=== PATIENT | male | born 1945 | race Caucasian/White ===

== ENCOUNTER 2018-04-05 14:52 | Emergency (ER) | payer OTHER, MEDICARE ==
[~2018-04-05] VITALS: Ht 177.8 cm; Wt 86.4 kg
[2018-04-05 14:56] VITALS: Ht 177.8 cm; Wt 86.4 kg
[2018-04-05] MEDS ORDERED: BP MED (14:57)
[2018-04-05] MEDS ORDERED: "\\\"STATIN\\\"" (14:57)
[2018-04-05] MEDS ORDERED: NORVASC10 MG PO (15:21)
[2018-04-05 16:17] VITALS: BP 145/70
== END 2018-04-05 16:18 | disposition home or self-care (01) ==
LOC: D.ER 14:52
DX: T78.3XXA Angioneurotic edema, initial encounter (principal)

== ENCOUNTER 2020-03-20 19:30 | Inpatient (IN) | payer OTHER, MEDICARE ==
[~2020-03-20] VITALS: Ht 177.8 cm; Wt 78.0 kg
[~2020-03-20 19:30] MED LIST: "\\\"STATIN\\\""; BP MED; NORVASC10 MG PO
[2020-03-20 20:25] LABS: BASOPHILS 0.3 % (0-2); EOSINOPHILS 0 % (0-7); HEMATOCRIT 40.9 % (42.0-54.0); HEMOGLOBIN 14.1 g/dL (13.5-17.5); IMMATURE GRANULOCYTES 0.3 % (0-5); LYMPHOCYTES 18.4 % (15-50); MCH 31.2 pg (26.0-34.0); MCHC 34.5 g/dL (31.0-37.0); MCV 90.5 fL (80.0-100.0); MEAN PLATELET VOLUME 9.3 fL (7.4-10.4); MONOCYTES 10.9 % (2-11); NEUTROPHILS 70.1 % (40-80); PLATELET COUNT 164 10x3/uL (130-400); RBC 4.52 10x6/uL (4.20-6.10); RDW 13.4 % (11.5-14.5)
[2020-03-20 20:31] LABS: BILIRUBIN NEGATIVE (NEGATIVE); GLUCOSE NEGATIVE (NEGATIVE); KETONE NEGATIVE (NEGATIVE); NITRITE NEGATIVE (NEGATIVE); UROBILINOGEN NORMAL (NORMAL)
[2020-03-20 20:51] LABS: CALC OSMOLALITY 263 mosm/kg (275-300); CALCIUM 8.4 mg/dL (8.5-10.1); CARBON DIOXIDE 25.6 mmol/L (21.0-32.0); CHLORIDE - SERUM 99 mmol/L (98-107); CREATININE - SERUM 1.1 mg/dL (0.6-1.3); GLUCOSE 102 mg/dL (74-106); POTASSIUM - SERUM 3.7 mmol/L (3.5-5.1); SODIUM 131 mmol/L (136-145); UREA NITROGEN 15 mg/dL (7-18); eGFR NON AFRICAN AMERICAN 70 mL/min (90-120)
[2020-03-20 21:01] LABS: ALBUMIN 3.2 g/dL (3.4-5.0); ALKALINE PHOSPHATASE 86 U/L (30-120); ALT (SGPT) 75 U/L (10-68); BILIRUBIN - TOTAL 0.52 mg/dL (0.2-1.3); C-REACTIVE PROTEIN 6.6 mg/dL (0.0-0.9); LIPASE 99 U/L (73-393); PRO BNP 496 pg/mL (0-125); PROTEIN - SERUM 7.3 g/dL (6.4-8.2); THYROID STIMULATING HORMONE 0.59 uIU/mL (0.36-3.74); TROPONIN-I < 0.017 ng/mL (0.000-0.060)
[2020-03-20 21:41] VITALS: BP 140/84
[2020-03-20 22:28] VITALS: BP 131/55
--- NOTE | 2020-03-21 00:02 | NUR ---
PT PROVIDED WITH URINAL. NO ACUTE DISTRESS NOTED, BED IN LOWEST POSITION, CALL LIGHT WITHIN REACH, WILL CONTINUE TO MONITOR.
[2020-03-21 03:00] VITALS: BP 143/73
[2020-03-21] MEDS ORDERED: LISINOPRIL10 MG PO (04:32)
[2020-03-21] MEDS ORDERED: ZETIA10 MG PO (04:32)
[2020-03-21 07:23] LABS: INR 0.98 (0.85-1.17)
[2020-03-21 07:32] VITALS: BP 168/90
[2020-03-21 07:40] LABS: CKMB 1.3 U/L (0.0-3.6); CREATINE KINASE 183 UL (21-232); MAGNESIUM - SERUM 1.8 mg/dL (1.8-2.4); TROPONIN-I < 0.017 ng/mL (0.000-0.060)
[2020-03-21 11:18] LABS: CKMB 0.7 U/L (0.0-3.6); CREATINE KINASE 146 UL (21-232)
[2020-03-21 11:20] LABS: TROPONIN-I < 0.017 ng/mL (0.000-0.060)
[2020-03-21 12:18] VITALS: BP 129/64
[2020-03-21 13:42] VITALS: Ht 177.8 cm; Wt 78.0 kg
[2020-03-21 16:23] VITALS: BP 173/96
[2020-03-21 17:30] LABS: CREATINE KINASE 168 UL (21-232); TROPONIN-I < 0.017 ng/mL (0.000-0.060)
--- NOTE | 2020-03-21 19:00 | NUR ---
REPORT RECEIVED, WILL CONTINUE POC. PATIENT IS AAOX4, UP AD [place]. NO S/S OF DISTRESS OBSERVED, RR EVEN AND UNLABORED ON ROOM AIR. PATIENT DENIES NEEDS AT THIS TIME. WILL BE MOVING TO ROOM 2101 DUE TO NEGATIVE COVID RESULT. CL IN REACH, BED LOCKED AND LOWERED. WILL CTM.
[2020-03-21 20:00] VITALS: BP 130/67
[2020-03-22 04:00] VITALS: BP 138/76
--- NOTE | 2020-03-22 04:03 | NUR ---
I have reviewed this patient and I concur with the Shift Assessment completed by the Licensed Practical Nurse today this shift.
--- NOTE | 2020-03-22 04:31 | NUR ---
PATIENT C/O HEADACHE. PRN TYLENOL ADMINISTERED PER ORDER.
[2020-03-22 07:02] LABS: BASOPHILS 0 % (0-2); EOSINOPHILS 0.3 % (0-7); HEMATOCRIT 36.8 % (42.0-54.0); HEMOGLOBIN 12.6 g/dL (13.5-17.5); IMMATURE GRANULOCYTES 0.3 % (0-5); LYMPHOCYTES 25.2 % (15-50); MCH 30.7 pg (26.0-34.0); MCHC 34.2 g/dL (31.0-37.0); MCV 89.8 fL (80.0-100.0); MEAN PLATELET VOLUME 8.8 fL (7.4-10.4); NEUTROPHILS 61.2 % (40-80); PLATELET COUNT 156 10x3/uL (130-400); RDW 13.3 % (11.5-14.5); WBC 3.9 10x3/uL (4.8-10.8)
[2020-03-22 07:21] LABS: ALBUMIN 2.8 g/dL (3.4-5.0); ALKALINE PHOSPHATASE 67 U/L (30-120); ALT (SGPT) 59 U/L (10-68); BILIRUBIN - TOTAL 0.45 mg/dL (0.2-1.3); CALC OSMOLALITY 270 mosm/kg (275-300); CALCIUM 8.4 mg/dL (8.5-10.1); CARBON DIOXIDE 25.8 mmol/L (21.0-32.0); CHLORIDE - SERUM 103 mmol/L (98-107); GLUCOSE 109 mg/dL (74-106); MAGNESIUM - SERUM 2.1 mg/dL (1.8-2.4); POTASSIUM - SERUM 3.7 mmol/L (3.5-5.1); PROTEIN - SERUM 6.4 g/dL (6.4-8.2); SODIUM 135 mmol/L (136-145); UREA NITROGEN 13 mg/dL (7-18); eGFR NON AFRICAN AMERICAN 78 mL/min (90-120)
[2020-03-22 08:00] VITALS: BP 138/59
[2020-03-22 11:00] VITALS: BP 190/98
--- NOTE | 2020-03-22 11:30 | NUR ---
CALLED TO ROOM AND PATIENT WAS SHAKING UNCONTROLLABLY, LEGS CRAMPING. HAVING CHILLS, HEART RATE SINUS TACH 109, BLOOD PRESSURE 190/102 MANUAL. TEMP 98.3. [facility] MARICARMEN CALLED AND SPOKE WITH FRANDY SORIA AND ASK HER TO COME LAY EYES ON PATIENT. SHE SAID SHE JUST LEFT THE FLOOR BUT WOULD COME BACK AT 11:35. ESTELLA HERE AT 11:55 AND COMPLETE EXAM DONE. BLOOD PRESSURE NOW 190/98. SHAKING AND CRAMPING HAS SLOWED DRASTICALLY AND IS IN ROOM AT THIS TIME.
[2020-03-22 15:00] VITALS: BP 146/82
[2020-03-22 18:55] LABS: UDS - AMPHET NEGATIVE QUAL (NEGATIVE); UDS - BARB NEGATIVE QUAL (NEGATIVE); UDS - BENZO POSITIVE QUAL (NEGATIVE); UDS - COCAINE NEGATIVE QUAL (NEGATIVE); UDS - OPIATE NEGATIVE QUAL (NEGATIVE); UDS - PCP NEGATIVE QUAL (NEGATIVE); UDS - THC NEGATIVE QUAL (NEGATIVE)
--- NOTE | 2020-03-22 18:55 | MORECARE ---
CASE MANAGEMENT DISCHARGE SUMMARY PATIENT: SHANELLE BUSTAMANTE SCHULTZ UNIT: [id number] ADM DATE: 03/21/20 AGE: 74 : 47 SEX: M ROOM/BED: D.2103 AUTHOR: IVETTE AL PHYSICIAN: REFERRING PHYSICIAN: EMILIANA PHAM MD DATE OF SERVICE: 03/22/20 Discharge Plan Patient Name: SHANELLE BUSTAMANTE [facility] [facility] 1945 Planned Disposition: Anticipated Discharge Date: Discharge Date: Expected LOS: Initial Reviewer: [email or web address] Initial Review Date: 03/21/2020 Generated: 03/22/20 7:54 pm External Providers External Provider: [employer] Next Contact Date: Service Request Date: Service Type: Resolution: Reviewer: Comments: Coverage Notice Reviewer: [email or web address] Juan José Curran Notice Issued Date-Time: 03/21/2020 16:30 Notice Type: Medicare Outpatient Observation Notice Notice Delivered To: Patient Relationship to Patient: Field Court Researcher Name: Delivery Method: HAND - Hand Delivered Juju Days: Prior Verbal Notification: Recipient Understood Notice: Yes Recipient Signature: Yes Med Rec Note Co-signed by Attending: Coverage Notice Comment: IBRAHIM SERVED, EXPLAINED, AND SIGNED BY PATIENT. THE ORIGINAL WAS PROVIDED TO THE PATIENT AND COPY PLACED ON CHART. Patient Name: SHANELLE BUSTAMANTE Page [phone] at 1855 All edits/amendments must be made on the electronic document DICTATION DATE: 03/22/201853 HEARING AID REPAIRER: MEHRDAD 03/22/201853 RPT#: [id number] DC DATE: STATUS: ADM IN [facility] [address] [place] [address] END OF REPORT
[2020-03-22 20:00] VITALS: BP 102/60
--- NOTE | 2020-03-22 20:00 | NUR ---
PATIENT IS RESTING IN BED. HE IS ALERT AND ORIENTED, AND VERY PLEASANT.HE IS ON TELE. WE WILL CONTINUE TO MONITOR HIS RATE AND RHYTHM.
--- NOTE | 2020-03-22 22:11 | NUR ---
PATIENT COMPLAINING OF CONSTIPATION FOR [address] PALAFOX CALLED. HE ORDERED DULCOLAC SUPPOSITORY AND LINZESS FOR THE PATIENT.
[2020-03-23] VITALS: BP 141/75
[2020-03-23 04:00] VITALS: BP 142/76
--- NOTE | 2020-03-23 04:09 | NUR ---
PATIENT HAS BEEN RESTING COMFORTABLY. HE RECEIVED TYLENOL FOR HEAD ACHE. HE IS ON TELE. WE WILL CONTINUE TO MONITOR HIS HEART RATE AND RHYTHM.
[2020-03-23 06:28] LABS: BASOPHILS 0.2 % (0-2); EOSINOPHILS 0.2 % (0-7); HEMATOCRIT 34.2 % (42.0-54.0); HEMOGLOBIN 11.7 g/dL (13.5-17.5); IMMATURE GRANULOCYTES 0.2 % (0-5); LYMPHOCYTES 23.6 % (15-50); MCH 30.4 pg (26.0-34.0); MCHC 34.2 g/dL (31.0-37.0); MCV 88.8 fL (80.0-100.0); MEAN PLATELET VOLUME 9.3 fL (7.4-10.4); MONOCYTES 13.6 % (2-11); NEUTROPHILS 62.2 % (40-80); PLATELET COUNT 178 10x3/uL (130-400); RBC 3.85 10x6/uL (4.20-6.10); RDW 13.3 % (11.5-14.5); WBC 4.5 10x3/uL (4.8-10.8)
[2020-03-23 07:20] LABS: ALBUMIN 2.7 g/dL (3.4-5.0); ALKALINE PHOSPHATASE 61 U/L (30-120); ALT (SGPT) 46 U/L (10-68); BILIRUBIN - TOTAL 0.42 mg/dL (0.2-1.3); CALC OSMOLALITY 265 mosm/kg (275-300); CALCIUM 7.9 mg/dL (8.5-10.1); CARBON DIOXIDE 23.2 mmol/L (21.0-32.0); CHLORIDE - SERUM 100 mmol/L (98-107); GLUCOSE 90 mg/dL (74-106); MAGNESIUM - SERUM 1.8 mg/dL (1.8-2.4); POTASSIUM - SERUM 3.6 mmol/L (3.5-5.1); PROTEIN - SERUM 5.7 g/dL (6.4-8.2); SODIUM 132 mmol/L (136-145); UREA NITROGEN 14 mg/dL (7-18); eGFR NON AFRICAN AMERICAN 78 mL/min (90-120)
--- NOTE | 2020-03-23 07:43 | NUR ---
PT LAYING SUPINE, RR EVEN AND UNLABORED. DENIES NEEDS OR PAIN AT THIS TIME. CALL LIGHT WITHIN REACH. BED IN LOWEST POSITION. WILL CONTINUE TO MONITOR.
[2020-03-23 08:01] VITALS: BP 135/58
--- NOTE | 2020-03-23 10:07 | NUR ---
Nutrition Follow-up: Ate ~50% of breakfast this AM. Reports some N/V yesterday / med reaction but none today. Diet: Cardiac Wt: 172# (03/21) Last BM: 03/23 Labs noted: Na 132, Ca 7.9, Alb 2.7 Meds noted: Folate, Protonix, NS @ 100, Zofran -Encourage PO intake and honor food preferences within diet restrictions. -Monitor wt. -RD following.
--- NOTE | 2020-03-23 10:45 | NUR ---
D/C INSTRUCTIONS REVIEWED WITH PT. VERBALIZED UNDERSTANDING. IV D/C WITH CATHETER TIP INTACT. LEFT VIA WHEELCHAIR TO PERSONAL VEHICLE WITH ALL BELONGINGS.
--- NOTE | 2020-03-23 16:40 | MORECARE ---
CASE MANAGEMENT DISCHARGE SUMMARY PATIENT: SHANELLE BUSTAMANTE SCHULTZ UNIT: [id number] ADM DATE: 03/23/20 AGE: 74 : 47 SEX: M ROOM/BED: D.2106 AUTHOR: IVETTE AL PHYSICIAN: REFERRING PHYSICIAN: EMILIANA PHAM MD DATE OF SERVICE: 03/23/20 Discharge Plan Patient Name: SHANELLE BUSTAMANTE [facility] [facility] 1945 Planned Disposition: Home Anticipated Discharge Date: 03/23/20 Discharge Date: 03/23/2020 Expected LOS: 1 Initial Reviewer: [email or web address] Initial Review Date: 03/21/2020 Generated: 03/23/20 5:40 pm Coverage Notice Reviewer: [email or web address] Juan José Curran Notice Issued Date-Time: 03/21/2020 16:30 Notice Type: Medicare Outpatient Observation Notice Notice Delivered To: Patient Relationship to Patient: Aircraft Communicator Name: Delivery Method: HAND - Hand Delivered Juju Days: Prior Verbal Notification: Recipient Understood Notice: Yes Recipient Signature: Yes Med Rec Note Co-signed by Attending: Coverage Notice Comment: IBRAHIM SERVED, EXPLAINED, AND SIGNED BY PATIENT. THE ORIGINAL WAS PROVIDED TO THE PATIENT AND COPY PLACED ON CHART. Last DP export: 03/22/20 5:55 pm Patient Name: SHANELLE BUSTAMANTE Page [phone] at 1640 All edits/amendments must be made on the electronic document DICTATION DATE: 03/23/20 1640 GORING CUTTER: MEHRDAD 03/23/20 1640 RPT#: [id number] DC DATE:03/23/20 STATUS: DIS IN [facility] [address] [place] [address] END OF REPORT
== END 2020-03-23 11:31 | disposition home or self-care (01) | DRG 315 ==
LOC: D.ER 19:30 → D.M2 03-21 01:18 → OBSVTIME 03-21 01:18 → D.M2 03-21 01:18
PROVIDERS: Family Medicine; ADMIT Family Medicine; ATTEND Family Medicine
DX: R00.8 Other abnormalities of heart beat (principal); E87.1 Hypo-osmolality and hyponatremia; F10.231 Alcohol dependence with withdrawal delirium; R00.1 Bradycardia, unspecified; E78.5 Hyperlipidemia, unspecified; I10 Essential (primary) hypertension; R50.9 Fever, unspecified; H70.891 Other mastoiditis and related conditions, right ear; D16.4 Benign neoplasm of bones of skull and face

== ENCOUNTER → 2020-04-10 15:24 | Outpatient (CLI) | payer MEDICARE ==
[2020-03-21 13:42] VITALS: BMI 24.6
[~2020-04-10 15:24] MED LIST changes: +LISINOPRIL10 MG PO; +ZETIA10 MG PO
[2020-04-10 17:28] LABS: BASOPHILS 1.7 % (0-2); EOSINOPHILS 0.8 % (0-7); HEMATOCRIT 35.5 % (42.0-54.0); HEMOGLOBIN 11.8 g/dL (13.5-17.5); IMMATURE GRANULOCYTES 0.3 % (0-5); LYMPHOCYTES 46.7 % (15-50); MCH 30.2 pg (26.0-34.0); MCHC 33.2 g/dL (31.0-37.0); MCV 90.8 fL (80.0-100.0); MEAN PLATELET VOLUME 8.9 fL (7.4-10.4); MONOCYTES 12.2 % (2-11); NEUTROPHILS 38.3 % (40-80); RBC 3.91 10x6/uL (4.20-6.10); RDW 14.4 % (11.5-14.5); WBC 3.6 10x3/uL (4.8-10.8)
[2020-04-10 17:29] LABS: PLATELET COUNT 268 10x3/uL (130-400)
[2020-04-10 17:36] LABS: CREATININE - SERUM 1.3 mg/dL (0.6-1.3); VANCOMYCIN - TROUGH 19.4 ug/mL (10.0-20.0)
== END | disposition home or self-care (01) ==
LOC: D.LABREF 15:24
PROVIDERS: ATTEND Specialist
DX: I33.9 Acute and subacute endocarditis, unspecified (principal)

== ENCOUNTER → 2020-04-21 18:27 | Outpatient (CLI) | payer MEDICARE ==
[2020-03-21 13:42] VITALS: BMI 24.6
[2020-04-21 19:22] LABS: CREATININE - SERUM 1.3 mg/dL (0.6-1.3)
== END | disposition home or self-care (01) ==
LOC: D.LABREF 18:27
DX: I33.0 Acute and subacute infective endocarditis (principal)